=== PATIENT | male | born 1995 | race American Indian/Alaskan Native ===

== ENCOUNTER 2017-06-14 08:20 | Emergency (ER) | payer OTHER ==
[2017-06-14 08:34] VITALS: BP 123/77
[2017-06-14] MEDS ORDERED: TYLENOL PO ONE (11:39)
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
== END 2017-06-14 13:10 | disposition home or self-care (01) ==
LOC: ED 08:20
DX: M54.2 Cervicalgia (principal); Z91.013 Allergy to seafood; V49.59XA Passenger injured in collision with other motor vehicles in traffic accident, initial encounter; Y93.89 Activity, other specified; Y99.9 Unspecified external cause status; Y92.410 Unspecified street and highway as the place of occurrence of the external cause
CPT/HCPCS: 70450; 72125